=== PATIENT | female | born 1970 | race Caucasian/White ===

== ENCOUNTER 2025-10-24 02:55 | Emergency (ER) | payer OTHER, SELFPAY ==
[2025-10-24 03:08] VITALS: BP 160/73; PULSE 90; RESP 14; TEMP 36.7; O2SAT 99; BMI 32.7
--- NOTE | 2025-10-24 03:24 | DI.CT.S_ITS ---
PROCEDURE: CT SOFT TISSUE NECK W CON INDICATIONS: peritonsilar abscess TECHNIQUE: After the administration of intravenous contrast, 3.0 mm axial sections acquired from the sella to the aortic arch. Additional oblique axial 3.0 mm sections acquired through the pharynx. 3 mm thick coronal and sagittal reformats were generated. For radiation dose reduction, the following was used: automated exposure control. COMPARISON: None. FINDINGS: Image quality: Excellent. Lymph nodes: Prominent bilateral cervical lymph nodes, greater on the left Vessels: Visualized vasculature appears patent. Neck spaces: Prominent palatine tonsils, greater on the left. No peritonsillar abscess is seen. The vocal cords, false vocal cords, pyriform sinuses, epiglottis, vallecula, and tongue base all appear normal. Extramucosal spaces appear unremarkable. Glands: The parotid and submandibular glands appear normal. Thyroid gland demonstrates no significant abnormality. Miscellaneous: Visualized brain and orbits appear normal. Lung apices appear clear. Superficial soft tissues appear normal. Bones: No suspicious bony lesions. Small left maxillary sinus air-fluid level. IMPRESSION: Prominent palatine tonsils, greater on the left. No organized fluid collections. Findings may represent tonsillitis. Prominent cervical lymph nodes, greater on the left. Findings are concordant with preliminary interpretation provided by [facility]. Dictated by: Robson Garcia M.D. on 10/24/2025 at 6:35 Approved by: Robson Garcia M.D. on 10/24/2025 at 6:40
--- NOTE | 2025-10-24 03:25 | ED.URI ---
HPI - URI/Sore Throat General Chief Complaint: Upper Respiratory Symptoms Stated Complaint: Sore Throat, Trouble Swallowing Time Seen by Provider: 10/24/25 03:06 Source: patient Mode of arrival: Ambulatory History of Present Illness HPI Narrative: 55-year-old female who for the past week has been having progressive more sore throat and difficulty swallowing. She is also having some trouble speaking because of the pain. She denies any fever but does have some chills. No other symptoms. Related Data Previous Rx's ?Medication ?Instructions ?Recorded amoxicillin 500 mg tablet 500 mg PO BID #20 tabs 10/24/25 prednisone 50 mg tablet 50 mg PO DAILY #5 tabs 10/24/25 Allergies Allergy/AdvReac Type Severity Reaction Status Date / Time No Known Drug Allergies Allergy Verified 10/24/25 03:08 Review of Systems Review of Systems ROS Unobtainable: All systems reviewed & are unremarkable except as noted in HPI and below Patient History Social History Smoking Status: Never smoker Smoking Status: Never smoker Exam Narrative Exam Narrative: General: Patient appears to be in no acute distress, acting appropriately Head: normocephalic, atraumatic, HEENT: Pupils equal round reactive, eyes tracking well, neck supple, no JVD throat: bilateral swollen tonsils , left greater than right Heart: regular rate and rhythm, no murmurs, rubs, or gallops heard Lungs: clear to auscultation, no adventitious sounds Abdomen: soft , nontender, nondistended, positive bowel sounds Neurological: no focal neurological signs, moving all extremities well, alert and oriented x3, Psych: good judgment ,good insight, mood is normal. Initial Vital Signs Initial Vital Signs: Vital Signs Temperature 98.1 F 10/24/25 03:08 Pulse Rate 90 10/24/25 03:08 Respiratory Rate 14 10/24/25 03:08 Blood Pressure 160/73 H 10/24/25 03:08 Pulse Oximetry 99 10/24/25 03:08 Oxygen Delivery Method Room Air 10/24/25 03:08 Course Orders Ordered: ED Orders 10/24/25 03:05 Strep Grp A by PCR Rapid Stat 10/24/25 03:23 CBC Auto Diff [Complete Blood Count AUTO DIFF] Stat CMP [Comprehensive Metabolic Panel] Stat Lactate (Lactic Acid) Stat 10/24/25 03:24 CT soft tissue neck w con Stat Discontinued Medications Dexamethasone (Dexamethasone 10 Mg/Ml Vial) 6 mg IV NOW ONE Stop: 10/24/25 03:28 Last Admin: 10/24/25 03:33 Dose: 6 mg Documented By: ELIEL Ampicillin Sodium/Sulbactam (Sodium 3 gm/ Sodium Chloride) 100 mls @ 200 mls/hr IV NOW ONE Stop: 10/24/25 03:23 Last Infusion: 10/24/25 04:39 Dose: Infused Documented By: Admin: 10/24/25 03:30 Dose: 200 mls/hr Documented By: ELIEL Sodium Chloride (Normal Saline 0.9%) 1,000 mls @ 1,000 mls/hr IV BOLUS ONE Stop: 10/24/25 06:25 Last Admin: 10/24/25 05:27 Dose: 1,000 mls/hr Documented By: WILFRED Ketorolac Tromethamine (Ketorolac 30 Mg/Ml Vial) 15 mg IV NOW ONE Stop: 10/24/25 04:12 Last Admin: 10/24/25 04:17 Dose: 15 mg Documented By: WILFRED Lidocaine HCl (Lidocaine Viscous 2% 15 Ml Solution) 15 ml PO NOW ONE Stop: 10/24/25 04:12 Last Admin: 10/24/25 04:17 Dose: 15 ml Documented By: WILFRED Reevaluation(s) Reevaluation #1: Upon re-evaluation, patient's condition is improved with the dexamethasone, IV Unasyn and fluids. Vital Signs Vital signs: Vital Signs - 8 hr 10/24/25 03:08 10/24/25 04:38 10/24/25 04:39 Temperature 98.1 F Pulse Rate 90 93 H 97 H Respiratory Rate 14 16 Blood Pressure 160/73 H Pulse Oximetry 99 93 96 Oxygen Delivery Method Room Air Room Air Room Air 10/24/25 04:39 10/24/25 05:00 10/24/25 05:00 Temperature Pulse Rate 97 H Respiratory Rate Blood Pressure 163/72 H 149/67 H Pulse Oximetry 94 Oxygen Delivery Method Room Air 10/24/25 05:30 10/24/25 05:30 10/24/25 06:00 Temperature Pulse Rate 93 H 96 H Respiratory Rate 18 Blood Pressure 139/65 Pulse Oximetry 93 95 Oxygen Delivery Method Room Air Room Air 10/24/25 06:00 Temperature Pulse Rate Respiratory Rate Blood Pressure 138/68 Pulse Oximetry Oxygen Delivery Method MDM - URI/Sore Throat Lab Data 10/24/25 03:23 10/24/25 03:23 Labs: Lab Results 10/24/25 10/24/25 Range/Units 03:05 03:23 WBC 7.3 (4.5-11.0) X10^3/uL RBC 4.61 (4.0-5.2) X10^6/uL Hgb 13.6 (12.0-16.0) g/dL Hct 40.5 (36-46) % MCV 87.8 (80-100) fL MCH 29.5 (26-34) PG MCHC 33.6 (30-36) % RDW 14.4 (11.6-14.8) % Plt Count 279 (150-400) X10^3/uL Neut % (Auto) 51.2 (50-75) % Lymph % (Auto) 34.3 (25-40) % Wilkinson % (Auto) 10.2 (3-14) % Eos % (Auto) 3.5 (2-4) % Baso % (Auto) 0.8 (0-2) % Neut # (Auto) 3700 (7094-8353) /uL Lymph # (Auto) 2500 (4736-7550) /uL Wilkinson # (Auto) 700 (0-900) /uL Eos # (Auto) 300 (0-450) /uL Baso # (Auto) 100 (0-100) /uL Sodium 141 (137-145) mmol/L Potassium 4.7 (3.4-5.1) mmol/L Chloride 104 (98-107) mmol/L Carbon Dioxide 28 (22-32) mmol/L BUN 14 (7-17) mg/dL Creatinine 0.62 (0.52-1.04) mg/dL Estimated GFR > 60 (>60) mL/min BUN/Creatinine Ratio 22.6 H (6-22) Glucose 179 H (70-99) mg/dL Lactate 1.2 (0.7-2.1) mmol/L Calcium 9.5 (8.4-10.2) mg/dL Total Bilirubin 0.3 (0.2-1.3) mg/dL AST 20 (14-36) IU/L ALT 16 (<35) IU/L Alkaline Phosphatase 62 (38-126) U/L Total Protein 7.2 (6.3-8.2) g/dL Albumin 4.3 (3.5-5.0) g/dL Globulin 2.9 (1.7-4.1) g/dL Albumin/Globulin Ratio 1.5 (1.0-2.8) Group A Strep (PCR) Positive H (Negative) Imaging Data ct soft tissue neck: Radiologist's Impression: Prominent palatine tonsils, greater on the left. No organized fluid collections. Findings may represent tonsillitis. Prominent cervical lymph nodes, greater on the left. Findings are concordant with preliminary interpretation provided by [facility]. MDM Narrative Medical decision making narrative: 55-year-old female found to have strep tonsillitis. Her inflammation and pain considerably improved after some dexamethasone and IV Unasyn. Patient will be prescribed some prednisone for the next 5 days along with amoxicillin. Patient advised to follow up if things worsen. Discharge Plan Departure Patient Disposition: Home Clinical Impression: Acute tonsillitis Qualifiers: Pharyngitis/tonsillitis etiology: streptococcus Streptococcal tonsillitis recurrence: non-recurrent Qualified Code(s): J03.00 - Acute streptococcal tonsillitis, unspecified Instructions: DI for Strep Throat Activity Restrictions/Additional Instructions: take antibiotics and steroids as prescribed. Follow up with ENT or come back to ER if symptoms worsen. Prescriptions: New amoxicillin 500 mg tablet 500 mg PO BID Qty: 20 0RF prednisone 50 mg tablet 50 mg PO DAILY Qty: 5 0RF Stand Alone Forms: Patient Portal/API
[2025-10-24] MEDS: AMPICILLIN/SULBACTAM 3 GM 3 GM in SODIUM CHLORIDE 0.9% 100 ML IV (03:30)
[2025-10-24 03:37] LABS: Strep Grp A by PCR Rapid Positive (Negative)
[2025-10-24 03:37] LABS: Add Manual Diff / Slide Review NO; Hematocrit 40.5 % (36-46); Hemoglobin 13.6 g/dL (12.0-16.0); Lymphocytes Absolute Auto 2500 /uL (1100-4500); Mean Corpuscular HGB Conc 33.6 % (30-36); Mean Corpuscular Hemoglobin 29.5 PG (26-34); Mean Corpuscular Volume 87.8 fL (80-100); Platelet Count 279 X10^3/uL (150-400)
[2025-10-24 03:47] LABS: Lactate (Lactic Acid) 1.2 mmol/L (0.7-2.1)
[2025-10-24 03:48] LABS: Alanine Aminotransferase 16 IU/L (<35); Albumin 4.3 g/dL (3.5-5.0); Albumin Globulin Ratio 1.5 (1.0-2.8); Alkaline Phosphatase 62 U/L (38-126); Blood Urea Nitrogen 14 mg/dL (7-17); Calcium 9.5 mg/dL (8.4-10.2); Carbon Dioxide 28 mmol/L (22-32); Chloride 104 mmol/L (98-107); Estimated Glomerular Filt Rate > 60 mL/min (>60); Globulin 2.9 g/dL (1.7-4.1); Glucose 179 mg/dL (70-99); HEMOLYSIS < 15 (0-50); Potassium 4.7 mmol/L (3.4-5.1); Sodium 141 mmol/L (137-145); Total Protein 7.2 g/dL (6.3-8.2)
[2025-10-24] MEDS: KETOROLAC 30 MG/ML VIAL 15 MG IV (04:17)
[2025-10-24] MEDS: LIDOCAINE VISCOUS 2% 15 ML SOLUTION PO (04:17)
[2025-10-24 04:38] VITALS: PULSE 93; RESP 16; O2SAT 93
[2025-10-24 04:39] VITALS: BP 163/72; PULSE 97; O2SAT 96
[2025-10-24 05:00] VITALS: BP 149/67; PULSE 97; O2SAT 94
[2025-10-24] MEDS: SODIUM CHLORIDE 0.9% 1,000 ML 1000 ML IV (05:27)
[2025-10-24 05:30] VITALS: BP 139/65; PULSE 93; O2SAT 93
[2025-10-24 06:00] VITALS: BP 138/68; PULSE 96; RESP 18; O2SAT 95
== END 2025-10-24 06:20 | disposition home or self-care (01) ==
PROVIDERS: Emergency Provider Family Medicine
DX: J03.90 Acute tonsillitis, unspecified (principal)
CPT/HCPCS: 36415; 70491; 80053; 83605; 85025; 87651; 99284; J0295; J1100; J1885; J7030; J7050; Q9967